=== PATIENT | male | born 1940 | race Caucasian/White ===

== ENCOUNTER 2019-04-24 12:13 | Emergency (ER) | payer MEDICARE, BC ==
--- NOTE | 2019-04-24 13:27 | EDM.PDOC ---
ED HPI GENERAL MEDICAL PROBLEM - General Chief Complaint: Skin Complaint Stated Complaint: INJURED LEFT LEG Time Seen by Provider: 04/24/19 13:10 Source of Information: Reports: Patient History Limitations: Reports: No Limitations - History of Present Illness INITIAL COMMENTS - FREE TEXT/NARRATIVE: patient c/o lower left calf redness, swelling and tenderness concerning for infection. He is diabetic He has been out of his medications for about 2 weeks; he doesn't live here. Returning home tomorrow. No fever. His blood sugars have been elevated but that isn't abnormal for him. PCP out of [facility]. Onset: Gradual Duration: Day(s):, Getting Worse Quality: Reports: Throbbing Severity: Moderate Improves with: Reports: None Worsens with: Reports: None back Pain Score (Numeric/FACES): 4 - Related Data Allergies Allergy/AdvReac Type Severity Reaction Status Date / Time No Known Allergies Allergy Verified 04/24/19 13:22 Home Meds: Home Meds Albuterol Sulfate 1 unit INH DAILY 04/24/19 [History] Celecoxib [CeleBREX] 200 mg PO DAILY 04/24/19 [History] Fluticasone Propionate [Flonase Allergy Relief] 2 spray TOP DAILY 04/24/19 [ History] Losartan Potassium 1 tab PO DAILY 04/24/19 [History] Losartan [Cozaar] 50 mg PO DAILY #60 tab 04/24/19 [Rx] Rosuvastatin [Crestor] 5 mg PO DAILY 04/24/19 [History] cephALEXin [Keflex] 500 mg PO Q8H #21 cap 04/24/19 [Rx] metFORMIN HCl [Metformin HCl] 1 tab PO BID 04/24/19 [History] metFORMIN [Glucophage XR] 1,000 mg PO BIDMEALS #60 tab.er 04/24/19 [Rx] traMADol HCl [Tramadol HCl] 1 tab PO BID 04/24/19 [History] ED ROS GENERAL - Review of Systems Review Of Systems: See Below Constitutional: Reports: No Symptoms Respiratory: Reports: No Symptoms Cardiovascular: Reports: No Symptoms Endocrine: Reports: Other (elevated glucose) GI/Abdominal: Reports: No Symptoms : Reports: No Symptoms Musculoskeletal: Reports: Leg Pain (left calf) Skin: Reports: Erythema, Wound Neurological: Reports: No Symptoms Psychiatric: Reports: No Symptoms ED EXAM, SKIN/RASH Exam: See Below Exam Limited By: No Limitations General Appearance: Alert, WD/WN, No Apparent Distress Neck: Normal Inspection, Supple, Non-Tender, Full Range of Motion Respiratory/Chest: No Respiratory Distress, Lungs Clear, Normal Breath Sounds Cardiovascular: Normal Peripheral Pulses, Regular Rate, Rhythm GI/Abdominal: Normal Bowel Sounds, Soft, Non-Tender Extremities: Normal Range of Motion Neurological: Alert, Oriented, CN II-XII Intact, Normal Cognition, Normal Gait, Normal Reflexes, No Motor/Sensory Deficits Psychiatric: Normal Affect, Normal Mood Skin: Warm, Dry, Other (left calf, quarter sized area of redness, mild discharge , warm to touch. Tender) Location, Skin: Lower Extremity, Left Characteristics: Erythematous Associated features: Warmth, Tenderness, Swelling Course - Vital Signs Last Recorded V/S: Last Vital Signs Temp 96 F 04/24/19 13:30 Pulse 79 04/24/19 13:30 Resp 15 04/24/19 13:30 BP 189/100 H 04/24/19 14:25 Pulse Ox 95 04/24/19 13:30 - Orders/Labs/Meds Meds: Medications Discontinued Medications Generic Name Dose Route Start Last Admin Trade Name Anshul PRN Reason Stop Dose Admin Losartan Potassium 50 mg 04/24/19 13:43 04/24/19 13:48 Cozaar PO 04/24/19 13:44 50 mg ONETIME ONE Administration - Re-Assessments/Exams Free Text/Narrative Re-Assessment/Exam: 04/24/19 15:22 at triage, patient was found to have elevated BP; 200's systolic with 100's diastolic; this is when he told us that he is out of his medication and hasn't taken it for days; he has no chest pain, sob, headache, blurry vision or ear ringing. He was given a dose of Losartan, went to waiting room for 30 minutes and his BP came down slightly; he again states he has no symptoms. I wrote for his losartan and metformin; he is heading home tomorrow; instructed to return should he have symptoms. Patient verbalized understanding and has no questions. Departure - Departure Time of Disposition: 13:23 Disposition: Home, Self-Care 01 Condition: Fair Clinical Impression: Cellulitis of left leg, Cellulitis, Hypertension - Discharge Information *PRESCRIPTION DRUG MONITORING PROGRAM REVIEWED*: Not Applicable *COPY OF PRESCRIPTION DRUG MONITORING REPORT IN PATIENT SHIN: Not Applicable Prescriptions: cephALEXin [Keflex] 500 mg PO Q8H #21 cap Losartan [Cozaar] 50 mg PO DAILY #60 tab metFORMIN [Glucophage XR] 1,000 mg PO BIDMEALS #60 tab.er Instructions: Cellulitis, Adult Referrals: PCP,None [Primary Care Provider] - Forms: ED Department Discharge Additional Instructions: Keep area clean and dry; avoid touching Take antibiotic as directed If after 2 full days of treatment you feel the wound isn't improving, follow up with your doctor or return to ER Be checking your blood sugars regularly; they may be slightly elevated from the infection. Push fluids Call with questions. - Problem List & Annotations (1) Cellulitis of left leg SNOMED Code(s): 448280253 Code(s): L03.116 - CELLULITIS OF LEFT LOWER LIMB Status: Acute Priority: Medium (2) Hypertension SNOMED Code(s): 11425758 Code(s): I10 - ESSENTIAL (PRIMARY) HYPERTENSION Status: Acute Priority: Medium Qualifiers: Hypertension type: unspecified Qualified Code(s): I10 - Essential (primary ) hypertension
[2019-04-24] MEDS ORDERED: Losartan 50 MG Tab PO ONE (13:43)
== END 2019-04-24 14:26 | disposition home or self-care (01) ==
LOC: JP.ED 12:13
DX: L03.116 Cellulitis of left lower limb (principal); I10 Essential (primary) hypertension
CPT/HCPCS: 99283; A9270